=== PATIENT | male | born 1995 | race Caucasian/White ===

== ENCOUNTER 2020-01-20 14:46 | Emergency (ER) | payer OTHER ==
[~2020-01-20] VITALS: Ht 170.2 cm; Wt 72.6 kg
[2020-01-20] MEDS ORDERED: ADERAL (15:10)
== END 2020-01-20 19:54 | disposition home or self-care (01) ==
LOC: ER 14:46
DX: S62.316A Displaced fracture of base of fifth metacarpal bone, right hand, initial encounter for closed fracture (principal); W18.39XA Other fall on same level, initial encounter; Y93.89 Activity, other specified; Y92.098 Other place in other non-institutional residence as the place of occurrence of the external cause; Y99.8 Other external cause status